=== PATIENT | male | born 1970 | race Hispanic/Latino ===

== ENCOUNTER 2018-11-07 08:48 | Emergency (ER) | payer OTHER ==
[2018-11-07] MEDS ORDERED: CLEOCIN 600 MG/50 mL 600 MG/50 ML BAG IV ONE (11:47)
[2018-11-07] MEDS ORDERED: TORADOL IV ONE (11:47)
[2018-11-07] MEDS ORDERED: NACL 0.9% 1000 ML 1,000 ML IV ONE (11:47)
--- NOTE | 2018-11-07 11:47 | Emergency Department Report ---
Abscess Boil HPI - HPI Chief Complaint: Skin/Abscess/Foreign Body Stated Complaint: (R) ARM INFECTION Time Seen by Provider: 11/07/18 11:24 Duration: 3 Days Location: Upper Extremity Severity: Mild History: Yes Pain, Yes Purulent Drainage, No Fever, No Numbness, No Foreign Body, No Previous History, No Insect Bite HPI: Patient is a pleasant 48-year-old male who comes to the ER after being seen at an urgent care over the last few days for he thought was an insect bite on his right arm. It has not gotten better despite his antibiotics which were penicillin given by the clinic. He has poured hydrogen peroxide on it and trying to pop it. I told him that both of these things are just couldn't make this worse. Patient's blood pressure is mildly elevated in triage but he states that he is in pain. Patient is afebrile. He has no tachycardia. He denies fever or chills at home. Home Medications: Previous Rx's Medication Instructions Recorded Last Taken Type Clindamycin [Clindamycin CAP] 300 mg PO Q8H #30 cap 11/07/18 Unknown Rx Allergies/Adverse Reactions: Allergies Allergy/AdvReac Type Severity Reaction Status Date / Time Penicillins Allergy Hives Verified 11/07/18 08:58 phenytoin [From Dilantin] Allergy Hives Verified 11/07/18 08:58 ED Review of Systems ROS: Stated complaint: (R) ARM INFECTION Other details as noted in HPI Comment: All other systems reviewed and negative ED Past Medical Hx - Past Medical History Hx Seizures: Yes - Surgical History Additional Surgical History: tonsillectomy - Family History Family history: no significant - Social History Smoking Status: Never Smoker Substance Use Type: None - Medications Home Medications: Home Medications Medication Instructions Recorded Confirmed Last Taken Type Clindamycin [Clindamycin CAP] 300 mg PO Q8H #30 cap 11/07/18 Unknown Rx ED Abscess Boil Physical Exam - Exam General: Vital signs noted. No distress. Alert and acting appropriately. Size: >5 cm Exam: Yes Tenderness, Yes Surrounding Cellulites/Erythema, Yes Normal Neurologic Exam, Yes Normal Circulation, No Fluctuance, No Lymphangitis, No Crepitation, No Heart Murmur Exam: RUE radial and ulnar pulses plus 2; rapid cap refill; full ROM. area of redness of lateral surface of right forearm. indurated without area of flutuance for I/D. no necrosis. full rom elbow and shoulder. ED Course Vital Signs 11/07/18 09:01 Temperature 98.3 F Pulse Rate 96 H Respiratory 18 Rate Blood Pressure 174/108 O2 Sat by Pulse 99 Oximetry Critical care attestation.: If time is entered above; I have spent that time in minutes in the direct care of this critically ill patient, excluding procedure time. ED Medical Decision Making - Lab Data Result diagrams: 11/07/18 12:05 11/07/18 12:05 - Medical Decision Making labs noted wound care provided No area to I/d. medicated with IV meds in ER. educated on wound care at home dc home with dc plan of care and follow up Saturday at clinic or with pcp. pt verbalizes understanding of instructions. Lab Results 11/07/18 11/07/18 Range/Units 12:05 12:05 WBC 12.9 H (4.5-11.0) K/mm3 RBC 4.88 (3.65-5.03) M/mm3 Hgb 14.3 (11.8-15.2) gm/dl Hct 43.2 (35.5-45.6) % MCV 89 (84-94) fl MCH 29 (28-32) pg MCHC 33 (32-34) % RDW 15.1 (13.2-15.2) % Plt Count 321 (140-440) K/mm3 Sodium 134 L (137-145) mmol/L Potassium 3.9 (3.6-5.0) mmol/L Chloride 93.6 L (98-107) mmol/L Carbon Dioxide 27 (22-30) mmol/L Anion Gap 17 mmol/L BUN 8 L (9-20) mg/dL Creatinine 0.7 L (0.8-1.5) mg/dL Estimated GFR > 60 ml/min BUN/Creatinine Ratio 11 % Glucose 101 H (75-100) mg/dL Calcium 8.8 (8.4-10.2) mg/dL Vital Signs 11/07/18 11/07/18 09:01 12:55 Temperature 98.3 F Pulse Rate 96 H 82 Respiratory 18 18 Rate Blood Pressure 174/108 Blood Pressure 163/90 [Right] O2 Sat by Pulse 99 98 Oximetry - Differential Diagnosis abscess v cellulitis ED Disposition Clinical Impression: Cellulitis, Elevated blood pressure reading Disposition: DC- TO HOME OR SELFCARE Is pt being admited?: No Does the pt Need Aspirin: No Condition: Stable Instructions: Cellulitis (ED) Additional Instructions: DIET TOLERATED ACTIVITY TOLERATED MOTRIN OR TYLENOL FOR PAIN OR FEVER RETURN TO THE ER FOR WORSENING SYMPTOMS NOT RELIEVED BY YOUR MEDICATIONS. STOP AMOXICILLIN MEDS ORDERED TODAY FOLLOW UP WITH PCP OR CLINIC ON SATURDAY TO BE SURE YOU ARE GETTING BETTER NO PEROXIDE DO NOT POP THE WOUND EPSOM SALTS THREE TIMES PER DAY FOR 20 M EACH TIME CLEAN TWICE PER DAY WITH SOAP AND WATER, APPLY NEOSPORIN AND WRAP IN GUAZE THESE THINGS SHOULD MAKE THE AREA DRAIN MONITOR YOUR BLOOD PRESSURE IT WAS INCREASED TODAY IF PERSISTS FOLLOW UP WITH YOUR PRIMARY CARE REFERRAL BELOW Prescriptions: Clindamycin [Clindamycin CAP] 300 mg PO Q8H #30 cap Referrals: SHEFALI MEJIA MD [Primary Care Provider] - 3-5 Days Time of Disposition: 12:50
[2018-11-07 12:17] LABS: Hematocrit 43.2 % (35.5-45.6); Hemoglobin 14.3 gm/dl (11.8-15.2); Mean Corpuscular HGB Conc 33 % (32-34); Mean Corpuscular Volume 89 fl (84-94); Platelet Count 321 K/mm3 (140-440); Red Blood Count 4.88 M/mm3 (3.65-5.03); Red Cell Distribution Width 15.1 % (13.2-15.2)
[2018-11-07 12:38] LABS: BUN/Creatinine Ratio 11; Blood Urea Nitrogen 8 mg/dL (9-20); Calcium 8.8 mg/dL (8.4-10.2); Hemolysis Index 0
[2018-11-07] MEDS ORDERED: TRIPLE ANTIBIOTIC TP ONE (12:50)
[2018-11-07 12:56] VITALS: BP 163/90
== END 2018-11-07 13:20 | disposition home or self-care (01) ==
LOC: ED 08:48
DX: L03.113 Cellulitis of right upper limb (principal); R03.0 Elevated blood-pressure reading, without diagnosis of hypertension
CPT/HCPCS: 36415; 80048; 85027; 96365; 96375; 99283; J1885; J7030; A6250